=== PATIENT | female | born 1975 | race Caucasian/White ===

== ENCOUNTER 2023-03-31 05:42 | Day surgery (SDC) | payer BC ==
[~2023-03-31] VITALS: Ht 167.6 cm; Wt 61.1 kg
[~2023-03-31 05:42] MED LIST: LR 1,000 ML IV SCH; Ondansetron 4 MG/2 ML VIAL IV PRN
[2023-03-31] MEDS ORDERED: ZYRTEC 10MG10 MG PO (06:04)
[2023-03-31] MEDS ORDERED: BENADRYL25 M2 PO (06:04)
[2023-03-31] MEDS ORDERED: IMODIUM 2MG CAPS2 MG PO (06:05)
[2023-03-31 06:06] VITALS: BP 108/75; PULSE 96; TEMP 98.2
[2023-03-31] MEDS ORDERED: PROVENTIL0.09 MG/A1 IH (06:06)
[2023-03-31] MEDS ORDERED: Succinylcholine PF 100 MG/5 ML SYRINGE/POLY AMP IV ONE (06:44)
[2023-03-31] MEDS ORDERED: Glycopyrrolate 0.2 MG/ML 1 ML VIAL ONE (06:44)
[2023-03-31] MEDS ORDERED: Lidocaine 2% Jelly 5 ML TUBE ONE (06:44)
[2023-03-31 07:55] VITALS: BP 85/56; PULSE 77; TEMP 98.1
[2023-03-31 08:00] VITALS: BP 94/58; PULSE 72
[2023-03-31 08:15] VITALS: BP 89/54; PULSE 73
--- NOTE | 2023-03-31 08:35 | NUR ---
0755- PATIENT RETURNS TO [facility] [place]ART. PT AWAKE AND ALERT. RESPIRATIONS UNLABORED. AMBULATED TO RECLINER CHAIR WITH 1:1 SBA. PT DENIES NAUSEA OR ABDOMINAL PAIN. HOOKED UP TO MONITOR AND VS OBTAINED. CALL LIGHT AT SIDE AND PRESENT. 0802- DR. MORENO IN ROOM SPEAKING WITH PATIENT. 0805- PATIENT TOLERATING PEPSI AND CHEESE WITHOUT NAUSEA OR DIFFICULTY SWALLOWING. 0821- D/C INSTRUCTIONS REVIEWED WITH PATIENT. PT VERBALIZED UNDERSTANDING AND A COPY OF INSTRUCTIONS PROVIDED IN D/C FOLDER. 0827- PATIENT DRESSES SELF. 0835- PATIENT DISCHARGED FROM UNIT VIA W/C TO A PERSONAL VEHICLE. PT LEFT HOSPITAL IN STABLE CONDITION.
== END 2023-03-31 08:35 | disposition home or self-care (01) ==
LOC: SDCO 05:42
DX: K52.832 Lymphocytic colitis (principal); K90.0 Celiac disease; K31.89 Other diseases of stomach and duodenum
CPT/HCPCS: J0330; J2405; J2704; J7120